=== PATIENT | male | born 1935 | race Caucasian/White ===

== ENCOUNTER 2017-11-14 11:48 | Outpatient (REF) | payer MEDICARE, OTHER, SELFPAY ==
[2017-11-14 14:50] LABS: Abs Immature Grans 0.05 k/cumm (0.0-0.09); Absolute Basophil Count 0.05 k/cumm (0.0-0.2); Absolute Eosinophil Count 0.25 k/cumm (0.0-0.7); Absolute Lymphocyte Count 0.92 k/cumm (1.2-3.4); Absolute Monocyte Count 0.65 k/cumm (0.11-0.7); Absolute Neutrophil Count 5.45 k/cumm (1.2-6.7); Basophils % 0.7; Eosinophils % 3.4; HCT 27.6 % (40.0-50.0); HGB 8.3 g/dL (13.5-17.5); Immature Grans % 0.7; Lymphocytes % 12.5; Mean Corp. HGB Concentration 30.1 g/dL (32.0-36.0); Mean Corpuscular Hemoglobin 27.3 pg (27.0-33.0); Mean Corpuscular Volume 90.8 fL (80-95); Mean Platelet Volume 9.7 fL (8.0-11.0); Monocytes % 8.8; Neutrophils % 73.9; Platelet Count 315 x1000/uL (130-400); RBC 3.04 m/cumm (4.50-6.00); RBC Distribution Width 15.8 % (11.8-14.1); White Blood Cell Count 7.37 k/cumm (4.4-10.8)
[2017-11-14 14:54] LABS: Anion Gap 8.3 mmol/L (3-11); BUN 30 mg/dL (7-18); CO2 25.7 mmol/L (21.0-32.0); CREATININE 1.42 mg/dL (0.70-1.30); Calcium 7.6 mg/dL (8.5-10.1); Chloride 106 mmol/L (98-107); Estimated GFR 47.97 (mL/min/1.73m2); Glucose 282 mg/dL (70-100); Potassium 4.5 mmol/L (3.5-5.1); Sodium 140 mmol/L (136-145)
[2017-11-14 15:10] LABS: Anisocytosis 1+; Burr Cells (echinocyte) 2+; Diff Comment RBC Morph Reviewed; Hypochromasia 1+; Polychromasia Present
[2017-11-14 15:11] LABS: Poikilocytes 2+
== END 2017-11-14 12:08 ==
LOC: NCHCN 11:48
PROVIDERS: PCP Internal Medicine; Visit Provider Internal Medicine
DX: I82.411 Acute embolism and thrombosis of right femoral vein (principal); E11.9 Type 2 diabetes mellitus without complications; I21.09 ST elevation (STEMI) myocardial infarction involving other coronary artery of anterior wall
CPT/HCPCS: 80048; 85025

== ENCOUNTER 2018-01-10 18:32 | Outpatient (REF) | payer MEDICARE, OTHER, SELFPAY ==
[2018-01-10 21:43] LABS: ALT 15 U/L (12-78); AST 24 U/L (15-37); Alkaline Phosphatase 132 U/L (46-116); Anion Gap 11.9 mmol/L (3-11); BUN 28 mg/dL (7-18); Bilirubin, Total 0.5 mg/dL (0.2-1.0); CO2 21.1 mmol/L (21.0-32.0); CREATININE 1.56 mg/dL (0.70-1.30); Calcium 7.3 mg/dL (8.5-10.1); Chloride 103 mmol/L (98-107); Estimated GFR 43.04 (mL/min/1.73m2); Glucose 215 mg/dL (70-100); Potassium 4.2 mmol/L (3.5-5.1); Sodium 136 mmol/L (136-145); Total Protein 6.8 g/dL (6.4-8.2)
[2018-01-10 21:55] LABS: HCT 30.5 % (40.0-50.0); HGB 9.2 g/dL (13.5-17.5); Mean Corp. HGB Concentration 30.2 g/dL (32.0-36.0); Mean Corpuscular Hemoglobin 24.6 pg (27.0-33.0); Mean Corpuscular Volume 81.6 fL (80-95); Mean Platelet Volume 10.2 fL (8.0-11.0); Platelet Count 225 x1000/uL (130-400); RBC 3.74 m/cumm (4.50-6.00); RBC Distribution Width 20.6 % (11.8-14.1); White Blood Cell Count 7.84 k/cumm (4.4-10.8)
[2018-01-10 22:40] LABS: Hemoglobin A1C 6.3 % (4.5-6.2)
== END 2018-01-10 18:52 ==
LOC: NCHCN 18:32
PROVIDERS: PCP Internal Medicine; Visit Provider Internal Medicine
DX: I95.9 Hypotension, unspecified (principal); D50.0 Iron deficiency anemia secondary to blood loss (chronic); I25.10 Atherosclerotic heart disease of native coronary artery without angina pectoris; R18.0 Malignant ascites; I35.0 Nonrheumatic aortic (valve) stenosis; E11.9 Type 2 diabetes mellitus without complications
CPT/HCPCS: 80053; 85027; 83036

== ENCOUNTER 2018-01-31 20:33 | Emergency (ER) | payer MEDICARE, OTHER, SELFPAY ==
[2018-01-31 20:33] VITALS: BP 114/69; PULSE 124; RESP 26; TEMP 36.5; O2SAT 98
[2018-01-31 20:37] VITALS: RESP 24
[2018-01-31] MEDS: oxyCODONE 5 MG TAB (20:43)
--- NOTE | 2018-01-31 20:51 | W.ED.GENAD ---
Discharge Plan Disposition Patient Disposition: HOME Condition: Stable Discharge Details Chief Complaint: SOB Clinical Impression: Ascites Reason For Visit: [place] Primary Care Provider: Jeremiah Lagunas ED Provider: Edison Bryan Home Meds and New Rx's Prescriptions: No Action furosemide 10 MG/1 ML solution 20 mg PO DAILY RF: 0 spironolactone 25 MG tablet 50 mg PO DAILY RF: 0 glimepiride 1 MG tablet 1 mg PO DAILY RF: 0 atorvastatin [Lipitor] 10 MG tablet 20 mg PO QPM RF: 0 metoprolol succinate [Toprol XL] 25 MG tablet extended release 24 hr 25 mg PO DAILY Qty: 30 RF: 0 nitroglycerin [Nitrostat] 0.4 MG tablet, sublingual 0.4 mg Sublingual PRN PRNQty: 1 RF: 0 Discharge Instructions Additional Instructions: follow up with your palliative care providers If you decide you want further interventions and develop fevers or severe worsening of pain return to the emergency department Medical Decision Making 83 yo male with hx of cirrhosis who comes in with complaint of I need by belly drained. States he has had it drained in the past most recently in [place]. He states he recently decided that he is going on hospice and just wants to be comfortable, he doesn't want any testing or other interventions done other than what makeshim comfortable which is why he would like his abdomen drained. He consents to having the procedure done. Differential Diagnosis cirrhosis, ascites HPI General Mode of arrival: EMS. Date/Time Provider Initiated Documentation: 01/31/18 20:51. Limitations to Documentation: no limitations. Information obtained by: patient. History of Present Illness 83 year old M presents to the emergency department with the chief complaint of distended abdomen, described as moderate, Patient started experiencing this week(s) (1) and it has been constant. No relieving factors improve symptom(s), No exacerbating factors reported . Patient notes no other symptoms.. Related Data Home Medications Medication Instructions Recorded Confirmed atorvastatin [Lipitor] 20 mg PO QPM 11/18/14 04/23/17 metoprolol succinate [Toprol XL] 25 mg PO DAILY #30 tab.er.24h 11/16/16 04/23/17 nitroglycerin [Nitrostat] 0.4 mg SUBLINGUAL PRN PRN #1 bottle 11/16/16 04/23/17 furosemide 20 mg PO DAILY ml 03/01/18 glimepiride 1 mg PO DAILY tab-cap 05/03/17 spironolactone 50 mg PO DAILY tab-cap 05/03/17 Previous Rx's Medication Instructions Recorded metoprolol succinate [Toprol XL] 25 mg PO DAILY #30 tab.er.24h 11/16/16 nitroglycerin [Nitrostat] 0.4 mg SUBLINGUAL PRN PRN #1 bottle 11/16/16 Allergies Allergy/AdvReac Type Severity Reaction Status Date / Time aspirin AdvReac Severe Unverified 04/23/17 15:37 General Stated Complaint: SOB NOEMI: 2 Review of Systems Review of Systems All systems reviewed & are unremarkable except as noted in HPI and below Constitutional Denies chills, Denies fever(s) and Denies weakness ENT Denies change in voice Cardiovascular Denies chest pain and Denies dyspnea Respiratory Denies dyspnea Gastrointestinal Denies abdominal pain, Denies nausea and Denies vomiting Musculoskeletal Denies joint swelling Neurologic Denies weakness Psychiatric Denies depression Endocrine Denies heat intolerance PFSH Aortic stenosis Atrial dysrhythmia Cirrhosis Diabetes Medical History Aortic stenosis Atrial dysrhythmia Cirrhosis Diabetes Social History Smoking/Tobacco Use Status: Former Tobacco Use Social History Smoking/Tobacco Use Status: Former Tobacco Use Exam Const General: no acute distress Orientation: alert [facility] Head: normal to inspection Ears: external ears normal General nose exam: external nose normal Mouth: moist mucous membranes Eyes General: appearance normal, both eyes and all related structures Neck Neck: normal visual inspection Resp Effort & Inspection: normal respiratory effort and able to speak in complete sentences Cardio Rate: regular rate GI Inspection: distended Skin General skin exam: no rashes or lesions noted Neuro General: alert and oriented x3 Extrem General: normal to inspection Psych Mental Status: mental status grossly normal Course Vital Signs Temperature 36.5 C 01/31/18 20:33 Pulse 124 H 01/31/18 20:33 Respiratory Rate 26 H 01/31/18 20:33 Blood Pressure 114/69 01/31/18 20:33 Pulse Oximetry 98 01/31/18 20:33 Temperature 36.5 C 01/31/18 20:33 Temperature Source Temporal Artery Scan 01/31/18 20:33 Pulse 124 H 01/31/18 20:33 Respiratory Rate 24 01/31/18 20:37 Respiratory Effort 01/31/18 20:37 Respiratory Depth Shallow 01/31/18 20:37 Respiratory Pattern Tachypnea 01/31/18 20:37 Blood Pressure 114/69 01/31/18 20:33 Blood Pressure Position Sitting 01/31/18 20:33 Pulse Oximetry 98 01/31/18 20:33 Oxygen Delivery Method Room Air 01/31/18 20:33 Oxygen Flow Rate 0 01/31/18 20:33 Pain Level 0 01/31/18 20:43 Procedures Paracentesis Time Out Performed: Yes Indication: Ascites Procedure: therapeutic paracentesis Location: RLQ Local Anesthetic: Lidocaine 2% Amount of anesthesia used (mL): 8 Bedside Ultrasound Used: yes, Ascites confirmed and location marked Preparation: 11 blade used to make shahid in skin Amount of Fluid Obtained: 4 (liters) Fluid: clear Size of Needle Used: 18 Post Procedure Exam: awake, alert, normal BP, normal HR and normal SpO2 Patient Tolerated Procedure: well Complications: none
--- NOTE | 2018-01-31 20:55 | ED.GENADUL_ITS ---
Discharge Plan Disposition Patient Disposition: HOME Condition: Stable Discharge Details Chief Complaint: SOB Clinical Impression: Ascites Reason For Visit: [place] Primary Care Provider: Jeremiah Lagunas ED Provider: Edison Bryan Home Meds and New Rx's Prescriptions: No Action furosemide 10 MG/1 ML solution 20 mg PO DAILY RF: 0 spironolactone 25 MG tablet 50 mg PO DAILY RF: 0 glimepiride 1 MG tablet 1 mg PO DAILY RF: 0 atorvastatin [Lipitor] 10 MG tablet 20 mg PO QPM RF: 0 metoprolol succinate [Toprol XL] 25 MG tablet extended release 24 hr 25 mg PO DAILY Qty: 30 RF: 0 nitroglycerin [Nitrostat] 0.4 MG tablet, sublingual 0.4 mg Sublingual PRN PRNQty: 1 RF: 0 Discharge Instructions Additional Instructions: follow up with your palliative care providers If you decide you want further interventions and develop fevers or severe worsening of pain return to the emergency department Medical Decision Making 83 yo male with hx of cirrhosis who comes in with complaint of I need by belly drained. States he has had it drained in the past most recently in [place]. He states he recently decided that he is going on hospice and just wants to be comfortable, he doesn't want any testing or other interventions done other than what makeshim comfortable which is why he would like his abdomen drained. He consents to having the procedure done. Differential Diagnosis cirrhosis, ascites HPI General Mode of arrival: EMS . Date/Time Provider Initiated Documentation: 01/31/18 20:51 . Limitations to Documentation: no limitations . Information obtained by: patient . History of Present Illness 83 year old M presents to the emergency department with the chief complaint of distended abdomen, described as moderate, Patient started experiencing this week(s) (1) and it has been constant. No relieving factors improve symptom(s ), No exacerbating factors reported . Patient notes no other symptoms.. Related Data Home Medications Medication Instructions Recorded Confirmed atorvastatin [Lipitor] 20 mg PO QPM 11/18/14 04/23/17 metoprolol succinate [Toprol XL] 25 mg PO DAILY #30 tab.er.24h 11/16/16 04/23/17 nitroglycerin [Nitrostat] 0.4 mg SUBLINGUAL PRN PRN #1 bottle 11/16/16 04/23/17 furosemide 20 mg PO DAILY ml 03/01/18 glimepiride 1 mg PO DAILY tab-cap 05/03/17 spironolactone 50 mg PO DAILY tab-cap 05/03/17 Previous Rx's Medication Instructions Recorded metoprolol succinate [Toprol XL] 25 mg PO DAILY #30 tab.er.24h 11/16/16 nitroglycerin [Nitrostat] 0.4 mg SUBLINGUAL PRN PRN #1 bottle 11/16/16 Allergies Allergy/AdvReac Type Severity Reaction Status Date / Time aspirin AdvReac Severe Unverified 04/23/17 15:37 General Stated Complaint: SOB NOEMI: 2 Review of Systems Review of Systems All systems reviewed & are unremarkable except as noted in HPI and below Constitutional Denies chills, Denies fever(s) and Denies weakness ENT Denies change in voice Cardiovascular Denies chest pain and Denies dyspnea Respiratory Denies dyspnea Gastrointestinal Denies abdominal pain, Denies nausea and Denies vomiting Musculoskeletal Denies joint swelling Neurologic Denies weakness Psychiatric Denies depression Endocrine Denies heat intolerance PFSH Aortic stenosis Atrial dysrhythmia Cirrhosis Diabetes Medical History Aortic stenosis Atrial dysrhythmia Cirrhosis Diabetes Social History Smoking/Tobacco Use Status: Former Tobacco Use Social History Smoking/Tobacco Use Status: Former Tobacco Use Exam Const General: no acute distress Orientation: alert [facility] Head: normal to inspection Ears: external ears normal General nose exam: external nose normal Mouth: moist mucous membranes Eyes General: appearance normal, both eyes and all related structures Neck Neck: normal visual inspection Resp Effort & Inspection: normal respiratory effort and able to speak in complete sentences Cardio Rate: regular rate GI Inspection: distended Skin General skin exam: no rashes or lesions noted Neuro General: alert and oriented x3 Extrem General: normal to inspection Psych Mental Status: mental status grossly normal Course Vital Signs Temperature 36.5 C 01/31/18 20:33 Pulse 124 H 01/31/18 20:33 Respiratory Rate 26 H 01/31/18 20:33 Blood Pressure 114/69 01/31/18 20:33 Pulse Oximetry 98 01/31/18 20:33 Temperature 36.5 C 01/31/18 20:33 Temperature Source Temporal Artery Scan 01/31/18 20:33 Pulse 124 H 01/31/18 20:33 Respiratory Rate 24 01/31/18 20:37 Respiratory Effort 01/31/18 20:37 Respiratory Depth Shallow 01/31/18 20:37 Respiratory Pattern Tachypnea 01/31/18 20:37 Blood Pressure 114/69 01/31/18 20:33 Blood Pressure Position Sitting 01/31/18 20:33 Pulse Oximetry 98 01/31/18 20:33 Oxygen Delivery Method Room Air 01/31/18 20:33 Oxygen Flow Rate 0 01/31/18 20:33 Pain Level 0 01/31/18 20:43 Procedures Paracentesis Time Out Performed: Yes Indication: Ascites Procedure: therapeutic paracentesis Location: RLQ Local Anesthetic: Lidocaine 2% Amount of anesthesia used (mL): 8 Bedside Ultrasound Used: yes, Ascites confirmed and location marked Preparation: 11 blade used to make shahid in skin Amount of Fluid Obtained: 4 (liters) Fluid: clear Size of Needle Used: 18 Post Procedure Exam: awake, alert, normal BP, normal HR and normal SpO2 Patient Tolerated Procedure: well Complications: none
[2018-01-31 22:37] VITALS: BP 96/61; PULSE 98; RESP 16; O2SAT 98
--- NOTE | 2018-02-01 10:54 | NUR.NOTE ---
Nursing Note:Patient's daughter, Joann, called asking that the COLST form be faxed to [facility]. She also gave permission to have it scanned into the patient record here at [facility]. These were both done. The original form was mailed to her. Karen Hull Joann Yvonne [address] [place] [id number]
== END 2018-01-31 22:39 | disposition home or self-care (01) ==
LOC: ER 22:36
PROVIDERS: Emergency Provider Emergency Medicine; PCP Internal Medicine
DX: R18.8 Other ascites (principal); K74.60 Unspecified cirrhosis of liver; C34.91 Malignant neoplasm of unspecified part of right bronchus or lung; Z87.891 Personal history of nicotine dependence; I10 Essential (primary) hypertension; E11.9 Type 2 diabetes mellitus without complications; Z79.84 Long term (current) use of oral hypoglycemic drugs
CPT/HCPCS: 49082

== ENCOUNTER 2018-02-17 12:32 | Inpatient (IN) | payer OTHER, SELFPAY ==
[2018-02-17 14:49] VITALS: BP 106/59; PULSE 109; RESP 20; TEMP 36.8; O2SAT 96
[2018-02-17] MEDS: Acetaminophen 325 MG TAB PO (15:02)
[2018-02-17] MEDS: MORPHine 1,000 MG in CADD PUMP CASSETTE 1 EACH, Normal Saline 80 ML 0.2 MG SC (15:24)
[2018-02-17] MEDS: Scopolamine 1 MG/3 DAYS PATCH TD (15:31)
[2018-02-17 15:41] VITALS: BP 106/59; PULSE 109; RESP 20; TEMP 36.8; O2SAT 96
--- NOTE | 2018-02-17 16:06 | HPE_ITS ---
Date of service: 02/17/18 Assessment and Plan (1) Closed left hip fracture: Start date: 02/17/18 Start time: 03:38 Current visit: Yes Status: Acute Not eligible for surgery at [facility] due to his multiple co-morbidities. No ortho at [facility]. Family does not want transfer to [facility]. Plan is to maintain bedbound status, control pain. Return patient home as soon as he is comfortable and stable. Qualifiers: Encounter type: initial encounter Qualified Code(s): S72.002A - Fracture of unspecified part of neck of left femur, initial encounter for closed fracture (2) Hospice care patient: Current visit: Yes Status: Chronic Admitted to hospice beginning of February. He wants to live until August, but have explained to him that is HIGHLY unlikely. Family loving and supportive. Shy and Vivian are primary caregivers. Plan is for Jerod to go home Monday 02/19 am by ambulance. Will see if this works. (3) At risk for inadequate pain control: Current visit: Yes Status: Acute On CADD pump. Family will need training from hospice nurses about how to run a home CADD. Comfortable during my exam and visit. (4) Liver failure: Current visit: Yes Status: Chronic Did have episode of epistaxis earlier this week. Postponed my home parencentesis due to this. Will try to do tomorrow, though if he is still bleeding easily, may not be able to do. Qualifiers: Liver failure chronicity: chronic Hepatic coma status: without hepatic coma Qualified Code(s): K72.10 - Chronic hepatic failure without coma History of Present Illness Chief Complaint: acute hip fracture following fall, liver failure, right sided CHF Narrative: 83 yo man on hospice at home for liver failure, thought to be secondary to right-sided heart failure. Dr Lagunas, his PCP, and I have both been seeing him at home recently. He and his family decided hospice would best meet his needs about 2 weeks ago. Was going to do a therapeutic parencentesis at home on 02/14, but as he had 3 hrs of epistaxis that am, so did not feel I should. Stopped his aspirin that day. Did have KS this past summer. Has COPD. Very fragile medically. Early this am, about 3, he got up reportedly to urinate, and fell. Was in intense pain in his left hip. Family heard him fall and tried to get him back into bed. Were able to do so with great difficulty. He was in severe pain. Unable to bear weight. Family called hospice nurse and then she directed them to call 911 as she suspected hip fracture. manager car came and despite family request that he go to [facility], he went to [place] [facility]. Evaluated there. Does have acute subcapital non-displaced hip fracture on left. Suffered skin tear in the xray department that bled profusely. After multiple conversations about how to proceed, it was decided that Jerod is too great a surgical risk for hip pinning at [facility]. [facility] in [facility] has no ortho for the next week. Family and Jerod did not want transfer to [facility]. Not sure if bed available, anyway. After multiple conversations with [facility] and [facility] ER doctors, with [employer], and with family, decision made that Ty would come to [facility] as direct admit for pain control and plan to transfer home for EOL care once he was comfortable. Review of Systems Constitutional Reports daytime sleepiness, Reports fatigue, Reports frequent falls, Reports poor appetite, Reports weakness and Reports weight loss Gastrointestinal Reports abdominal pain, Reports bloating, Reports early satiety and Reports nausea Genitourinary Reports difficulty urinating, Reports urinary frequency, Reports urinary hesitancy and Reports urinary incontinence Musculoskeletal Reports abnormal gait, Reports deformity, Reports arthralgias, Reports joint swelling, Reports limited range of motion and Reports muscle weakness Neurologic Reports abnormal gait, Reports frequent falls, Reports memory loss and Reports weakness Psychiatric Reports memory loss Endocrine Reports fatigue Hematologic/Lymphatic Reports easy bleeding and Reports easy bruising [facility] Medical History Ascites (Acute) End-stage systolic heart failure (Acute) Generalized weakness (Acute) Smoker (Acute) Vascular dementia (Acute) Aortic stenosis Atrial dysrhythmia Cirrhosis Diabetes Family History Son No problems noted. Social History caregiver/support person: Yes household members: family, children and friend(s) housing: house lives independently: No number of children: 3 number of grandchildren: 3 skilled nursing: No current occupational status: retired pets and animals: Yes Hx Recent Travel: No diet: diabetic well-balanced diet: about half the time caffeine: Yes eating out: rarely or never reads food labels: seldom or never during the past year weight has: increased > 10 lbs Smoking/Tobacco Use Status: Current every day Meds Home Medications Medication Instructions Recorded Confirmed Type nitroglycerin [Nitrostat] 0.4 mg SUBLINGUAL PRN PRN #1 bottle 11/16/16 02/17/18 Rx furosemide 20 mg PO DAILY ml 05/03/17 02/17/18 History spironolactone 50 mg PO DAILY tab-cap 05/03/17 02/17/18 History Allergies Allergy/AdvReac Type Severity Reaction Status Date / Time aspirin AdvReac Severe Unverified 04/23/17 15:37 Exam Const General: frail appearing, ill appearing and lethargic Nutritional Appearance: overweight (distended abdomen with ascites) Limitations: altered mental status and physical limitations HENMT Head: normocephalic and atraumatic Ears: external ears normal General nose exam: external nose normal Eyes Conjunctivae: conjunctivae normal Sclera: scleral abnormality (slight jaundice) bilaterally Neck Neck: no lymphadenopathy Thyroid: thyroid normal Resp Effort & Inspection: normal respiratory effort Auscultation: crackles and rhonchi Cardio Jugular venous pressure: JVD Rate: regular rate Rhythm: regular rhythm Heart Sounds: S1 normal and S2 normal GI Inspection: distended Palpation: firm and ascites Percussion: dullness to percussion and fluid wave Auscultation: hypoactive bowel sounds Skin Trauma: abrasion (skin tear dorsum of left hand, new, occurred at [place] according to family) Hair: general thinning Nails: clubbing Neuro General: confused (has delirium, sometimes clear, sometimes confused) and obtunded Cognition: abnormal cognition Speech: abnormal speech Gait: other (unable to bear weight due to fracture) Motor: strength abnormal Extrem General: clubbing, edema and muscle atrophy Left lower extremity: hip/thigh Details: abnormal to inspection, tenderness, swelling, abnormal ROM and deformity Psych Appearance: disheveled Other: too sleepy to assess Results Last Vital Signs Temp 98.2 F 02/17/18 15:41 Pulse 109 H 02/17/18 15:41 Resp 20 02/17/18 15:41 BP 106/59 L 02/17/18 15:41 Pulse Ox 96 02/17/18 15:41
[2018-02-17] MEDS: Lidocaine 2% Jelly 11 ML SYR UR (16:42)
[2018-02-17 17:00] VITALS: BP 106/59; PULSE 109; RESP 20; TEMP 36.8; O2SAT 96
[2018-02-17] MEDS: Glycopyrrolate 0.2 MG/1 ML VIAL IVP (22:06)
[2018-02-17] MEDS: Normal Saline Flush 10 ML SYR (22:07)
[2018-02-18] MEDS: Albuterol 2.5 MG/3 ML INH SOLN VIAL UPD (01:59)
[2018-02-18 02:13] VITALS: RESP 5
[2018-02-18] MEDS: Glycopyrrolate 0.2 MG/1 ML VIAL IVP (06:40)
[2018-02-18] MEDS: Normal Saline Flush 10 ML SYR IVP ×2 (06:40→07:53)
[2018-02-18 06:50] VITALS: BP 97/55; PULSE 131; RESP 9; TEMP 37.5; O2SAT 94
--- NOTE | 2018-02-18 07:16 | W.PM.PROGNOT ---
Date of Service Date of service: 02/18/18 Time of Service: 06:16 Assessment and Plan (1) Hospice care patient: Current visit: Yes Status: Chronic May be actively dying. Hard to tell. Family says no prior h/o apnea at home but he does have risk factors for it. Did call and speak at length this morning to his primary caregiver, [id number] Joann. She has her own doctor's appointment this am. Spoke to his primary hospice nurse who will check in with Shy, too. Jreod did say to several of his family members and me last night that he was not going home. I'm going to stay right here. SO perhaps he has insight into his dying process... (2) Closed left hip fracture: Current visit: Yes Status: Acute Pain seems controlled at 2 mg per hour of morphine. Reduce to 1 mg per hour and see if he becomes more alert. No surgery planned. Too high a surgical risk given his liver, heart, and lung failure. Qualifiers: Encounter type: initial encounter Fracture healing: Qualified Code(s): S72.002A - Fracture of unspecified part of neck of left femur, initial encounter for closed fracture (3) Liver failure: Current visit: Yes Status: Chronic Reason for admission to hospice. Was going to do a therapeutic parencentesis today but given his degree of obtundation, and his adequate oxygenation by oximeter, will leave him be. Qualifiers: Liver failure chronicity: chronic Hepatic coma status: without hepatic coma Qualified Code(s): K72.10 - Chronic hepatic failure without coma (4) Apnea: Current visit: Yes Status: Acute Likely part of his dying. Did reduce his morphine from 2 mg to 1 mg per hour to see if this makes a difference. Is dehydrated. Poor urine output. On spiranolactone usually for his CHF. Will hold diuretics and give him 500 ccs of fluid, despite his CHF and ascites. Probably will not help but trying to keep him with us long enough to get him back home, at family's request. Subjective Interval history since last seen: Minimally responsive. Called in to evaluate his apnea, to see if he is actively dying. Was on 2 mg of morphine by CADD pump overnight. Making minimal urine. Having 12 sec pauses in breathing regularly. Does have left subcapital non-displaced fracture. Not able to take anything in by mouth. Too lethargic. Unable to speak to me. Exam Narrative Exam Narrative: Jerod is lying in his bed, minimally responsive. Skin is warm, not diaphoretic. Asked nursing to do a set of vitals. HR in the 120s-130s. + apnea RR averages 9 breaths per minute slightly elevated temp Eyes closed HEENT dentures ill-fitting, almost falling out, MM are dry Lung + rhonchi, + crackles CV tachycardic, + murmur? Abd + distended with ascites Ext + edema Neuro minimally responsive Psych Seemed calm when last conversing, last evening. Did say he wasn't going home. Skin Skin tear no longer bleeding dorsum of left hand Objective Objective Clinical Data: Vital Signs Temperature 98.2 F 02/17/18 17:00 Temperature Source Tympanic 02/17/18 14:49 Pulse 109 H 02/17/18 17:00 Respiratory Rate 20 02/17/18 17:00 Respiratory Effort 02/17/18 23:20 Respiratory Depth Deep 02/17/18 23:20 Respiratory Pattern Apnea 02/17/18 23:20 Blood Pressure 106/59 L 02/17/18 17:00 Pulse Oximetry 96 02/17/18 17:00 Oxygen Delivery Method Nasal Cannula 02/17/18 17:00 Oxygen Flow Rate 2 02/17/18 17:00 Pain Level 0 02/18/18 00:06 Intake & Output 02/17/18 02/17/18 02/18/18 11:59 23:59 11:59 Intake Total 100 / 100 0 / 0 Output Total 225 / 225 100 / 100 Balance -125 / -125 -100 / -100 Weight 188 lb 4.396 oz 184 lb 8.43 oz Intake: Oral 100 / 100 0 / 0 Output: Urine 225 / 225 100 / 100 Other: Urine Color Dark Winsome Dark Winsome Urine Appearance Clear Cloudy Voiding Methods Diaper Incontinent
--- NOTE | 2018-02-18 07:48 | PDOC.CMIN ---
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 PAST MEDICAL HISTORY/PAST SURGICAL HISTORY:: Aortic stenosis, atrial dysrhythmia, cirrhosis, end-stage systolic heart failure, vascular dementia, apnea, liver failure, latent autoimmune diabetes, incontinence, mild cognitive impairment, BPH, hypertension, hx. acute MS, hx. colonic polyps, hx. lung CA. Surgical hx: closed left hip fracture. PREVIOUS FUNCTIONAL STATUS/SOCIAL/FAMILY SUPPORTS:: Ty recieves hospice services through [facility]. He resides in [place] with his son, Neno, his daughter in law, Shy, and their friend, Vivian. CURRENT FUNCTIONAL STATUS:: Ty is lying in bed sleeping when CM visits this morning. He does not wake when CM enters. His breathing is labored and per Dr. Fu, Ty is declining and close to passing. Per CARLEY Manuel, Ty will discharge today from the hospital at 1500 per family request. ADVANCE DIRECTIVES:: None on file at [facility]. Has patient been provided with information about the portal?: No Did the patient sign up for the portal?: No CODE STATUS:: DNR/DNI INSURANCE COVERAGE / FINANCIAL ISSUES:: [facility], Medicare, [employer]. CURRENT HOME/COMMUNITY SERVICES/EQUIPMENT:: Hospice. PRIMARY CARE PHYSICIAN:: Jeremiah Lagunas MD. POTENTIAL DISCHARGE NEEDS:: Delivery of hospital bed to home by [facility] [facility]. Anticipated delivery 02/18. PATIENT/FAMILY EDUCATION NEEDS:: Discharge education, any limitations, and follow up plan of care. Ask Me Three discussion. ANTICIPATED BARRIERS TO DISCHARGE:: No anticipated barriers to discharge. TRANSPORTATION:: Ty will transport via EMS. PLAN:: yT will discharge home when medically ready per MD. Anticipate patient will discharge on Sunday, 02/19 and follow up with [facility] services on 02/20. will continue to offer support to patient, family, and care team regarding discharge planning and disposition.
[2018-02-18] MEDS: Normal Saline 1,000 ML 125 ML IV (07:53)
--- NOTE | 2018-02-18 07:58 | INITIAL_ITS ---
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 PAST MEDICAL HISTORY/PAST SURGICAL HISTORY:: Aortic stenosis, atrial dysrhythmia, cirrhosis, end-stage systolic heart failure, vascular dementia, apnea, liver failure, latent autoimmune diabetes, incontinence, mild cognitive impairment, BPH, hypertension, hx. acute MD, hx. colonic polyps, hx. lung CA. Surgical hx: closed left hip fracture. PREVIOUS FUNCTIONAL STATUS/SOCIAL/FAMILY SUPPORTS:: Ty recieves hospice services through [facility]. He resides in [place] with his son, Neno, his daughter in law, Shy, and their friend, Vivian. CURRENT FUNCTIONAL STATUS:: Ty is lying in bed sleeping when CM visits this morning. He does not wake when enters. His breathing is labored and per Dr. Fu, Ty is declining and close to passing. Per CARLEY Manuel, Ty will discharge today from the hospital at 1500 per family request. ADVANCE DIRECTIVES:: None on file at [facility]. Has patient been provided with information about the portal?: No Did the patient sign up for the portal?: No CODE STATUS:: DNR/DNI INSURANCE COVERAGE / FINANCIAL ISSUES:: [facility], [facility]. CURRENT HOME/COMMUNITY SERVICES/EQUIPMENT:: Hospice. PRIMARY CARE PHYSICIAN:: Jeremiah Lagunas MD. POTENTIAL DISCHARGE NEEDS:: Delivery of hospital bed to home by [facility]. Anticipated delivery 02/18. PATIENT/FAMILY EDUCATION NEEDS:: Discharge education, any limitations, and follow up plan of care. Ask Me Three discussion. ANTICIPATED BARRIERS TO DISCHARGE:: No anticipated barriers to discharge. TRANSPORTATION:: Ty will transport via EMS. PLAN:: Ty will discharge home when medically ready per MD. Anticipate patient will discharge on Sunday, 02/19 and follow up with [facility] services on 02/20. will continue to offer support to patient, family, and care team regarding discharge planning and disposition.
--- NOTE | 2018-02-18 09:21 | PDOC.CMDIS ---
- If Service Date Differs Date of service: 02/18/18 Time of Service: 09:21 LACE Index Scoring Tool - Questions: Length of Stay (in days): 2 Acuity (Admit via E.D.?): No Comorbidities: Liver or Renal Disease, Metastatic Solid Tumor E.D. 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 Anticipate patient will discharge with a continuation of Hospice services and follow up with Dr. Fu. Ty will transport via EMS. Patient/Family Education Needs: Discharge education, any limitations, and follow up plan of care. Ask Me Three discussion. Services Needed at Discharge: Home Health Care Services ([facility]. )
--- NOTE | 2018-02-18 09:25 | CMDISCH_ITS ---
- If Service Date Differs Date of service: 02/18/18 Time of Service: 09:21 LACE Index Scoring Tool - Questions: Length of Stay (in days): 2 Acuity (Admit via E.D.?): No Comorbidities: Liver or Renal Disease, Metastatic Solid Tumor E.D. 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 Discharge Plan: Ty will discharge home when medically ready per MD. Anticipate patient will discharge with a continuation of Hospice services and follow up with Dr. Fu. Ty will transport via EMS. Patient/Family Education Needs: Discharge education, any limitations, and follow up plan of care. Ask Me Three discussion. Services Needed at Discharge: Home Health Care Services ([facility]. )
--- NOTE | 2018-02-18 15:06 | CHAPLAIN ---
I received a request from Dr. Fu to visit, a hospice patient here after falling and breaking his hip. Ty was sleeping the few times I checked in his room this morning. Eventually I met his son, Jr. Ty in his room. Jr. Ty, shared some of his dad's history, telling me that he had been in the and that the family moved around quite a bit when he was younger, and eventually settled in [place], [place] and then [place]. Jr. Ty said he has a brother and three (or four?) half sisters. One sister was arriving to visit today. She has not spoken to he father in a long time because of family conflict, although Jr Ty. he doesn't know the details. Ty Sampson said when he visited his father yesterday her was still talking and much more alert, he wondered if Ty Jewell's less responsiveness today was due to pain medication administered because of his broken hip.
== END 2018-02-18 15:30 | disposition home health service (06) | DRG 536 ==
PROVIDERS: Admitting Provider Family Medicine; PCP Internal Medicine; Visit Provider Family Medicine
DX: S72.012A Unspecified intracapsular fracture of left femur, initial encounter for closed fracture (principal); Z51.5 Encounter for palliative care; K72.90 Hepatic failure, unspecified without coma; W19.XXXA Unspecified fall, initial encounter; I50.812 Chronic right heart failure; J44.9 Chronic obstructive pulmonary disease, unspecified; I50.84 End stage heart failure; E11.9 Type 2 diabetes mellitus without complications
CPT/HCPCS: 99223; 99233; J7613